=== PATIENT | male | born 1940 | race Caucasian/White ===

== ENCOUNTER 2024-02-29 13:20 | Emergency (ER) | payer MEDICARE, OTHER, SELFPAY ==
[2024-02-29 13:20] VITALS: BMI 24.7
[2024-02-29 13:45] VITALS: BP 148/56
--- NOTE | 2024-02-29 14:05 | ED.GENMED ---
History of Present Illness
General
Chief Complaint: Crisis Evaluation
Time Seen by Provider: 02/29/24 14:04
History of Present Illness
History of Present Illness:
TIME OF INITIAL ENCOUNTER: 2:10 PM
HPI:
Patient comes in from [facility] care recently discharged from [facility] and was reportedly combative with staff. However when I evaluate the patient currently, the patient has no specific complaints and is pleasantly
confused. He does report some right lower gum discomfort.
EXAM:
GENERAL: Appears in no distress
HEENT: Moist oral mucosa, there is no obvious abnormality noted to the gingiva of the edentulous mandible
CARDIOVASCULAR: Regular rate and rhythm
PULMONARY: No respiratory distress, breathing is nonlabored, equal and clear breath sounds
ABDOMEN: Soft and nontender with no peritoneal signs
NEUROLOGIC: The patient has evidence of dementia, not oriented to month or place, strength is equal in all extremities
EXTREMITIES: Moves all extremities equally, no tenderness, no edema
PYSCHIATRIC: Very limited historian, poor insight and judgment
NUMBER AND COMPLEXITY OF PROBLEMS ADDRESSED AT THE ENCOUNTER
� Chronic conditions affecting care: Dementia
� Acute Exacerbation and/or Progression of Chronic Illness: This is an acute problem
� Differential Diagnosis includes: Delirium, worsening dementia, vital signs are not consistent with sepsis/infection
AMOUNT AND/OR COMPLEXITY OF DATA TO BE REVIEWED AND ANALYZED
� I performed an independent evaluation of and my interpretation is:
EKG:
CT:
X-rays:
Laboratory Studies: Urinalysis shows no evidence of infection
Other:
� Review of other/old records: No old records available for review in [facility]
� Clinical information was obtained by an independent historian: I called [facility] at 2:15 PM
� Prescriptions/Medications Considered but not given:
� Further testing considered but not performed:
RISK OF COMPLICATIONS AND/OR MORBIDITY OR MORTALITY OF PATIENT MANAGEMENT
� Social determinants of health affecting care: Resides at [facility] after being released from [facility]
� [facility] with other providers: [facility] only for the past 3 days has the had intermittent episodes of agitation.
� Escalation of care including admission/observation vs risk of discharge considered: Nurse at his facility requested urinalysis which was obtained and was unremarkable. He has been calm and cooperative throughout his stay here.
ANY OTHER UPDATES:
5:15 PM: No changes in clinical condition�remains cooperative
Phy Exam
Physical Exam
Physical Exam:
See HPI
Course
Orders/Labs/Results
Orders:
Orders
02/29/24 15:55
Urinalysis Reflex To Culture Urgent
Date Specimen was Collected: 02/29/24
Time Specimen was Collected: 15:30
Vital Signs
Initial and Last Documented VS:
Initial Vital Signs
Temp Pulse Resp BP Pulse Ox
97.5 F 63 18 148/56 99
02/29/24 13:45 02/29/24 13:45 02/29/24 13:45 02/29/24 13:45 02/29/24 13:45
Last Documented Vital Signs
Temp Pulse Resp BP Pulse Ox
97.5 F 63 18 148/56 99
02/29/24 13:45 02/29/24 13:45 02/29/24 13:45 02/29/24 13:45 02/29/24 13:45
*Critical Care Note
Total Time (30-74mins, 75-104mins- exclusive of procedures): Not Applicable
ED Attending Note
-
Portions of this chart may have been created with voice recognition software.� Occasional wrong word or��sound alike� substitutions may have occurred due to the inherent limitations of voice recognition software.
Discharge Plan
Departure
Patient Disposition: Home (Routine Discharge)
Date of Disposition: 02/29/24
Time of Disposition: 17:14
Patient with high blood pressure during this ER visit?: Yes
Discharge Problem:
Agitation due to dementia
Referrals:
Kevin De La Rosa MD [Family Provider] -
Activity Restrictions/Additional Instructions:
Urinalysis shows no sign of infection. Vital signs unremarkable with exception of slightly high blood pressure 148/56. Return here if worse or other concerns.
Interventions
Interventions:
*Risk Screen - Suicide Last Done: 02/29/24 15:03
*General Assessment Last Done: 02/29/24 15:03
*Neglect/Abuse Screening Last Done: 02/29/24 15:06
*ED COVID-19 Vaccine History Last Done: 02/29/24 15:03
ED-Psychological Assessment Last Done: 02/29/24 15:05
Discharge Date and Time
Print Language: LIBYAN
[2024-02-29 16:25] LABS: Urine Albumin Trace (Neg - Trace); Urine Bilirubin Negative (Negative); Urine Character Clear (Clear); Urine Color Yellow; Urine Glucose Negative (Negative); Urine Ketone Negative (Negative); Urine Leukocyte Negative (Negative); Urine Nitrite Negative (Negative); Urine Occult Blood Negative (Negative); Urine Urobilinogen Negative (Neg - 1+)
[2024-02-29 18:53] VITALS: BP 156/83
== END 2024-02-29 20:45 | disposition home or self-care (01) ==
LOC: EMR 13:20
PROVIDERS: EMERGENCY PHYSICIAN Emergency Medicine; FAMILY PHYSICIAN Family Medicine
DX: F03.911 Unspecified dementia, unspecified severity, with agitation (principal)
CPT/HCPCS: 99282; 81003